=== PATIENT | female | born 1995 | race Caucasian/White ===

== ENCOUNTER 2020-12-17 16:51 | Emergency (ER) | payer MEDICAID ==
[~2020-12-17] VITALS: Ht 172.7 cm; Wt 90.9 kg
[~2020-12-17 16:51] MED LIST: BACDS PO
[2020-12-17 17:28] LABS: BASOPHILS % (AUTO) 0.4 % (0-1); EOSINOPHILS % (AUTO) 0.4 % (0-6); HEMATOCRIT 41.1 % (35.0-45.0); HEMOGLOBIN 13.9 g/dl (12.0-16.0); LYMPHOCYTES % (AUTO) 11.3 % (21-51); MEAN CORPUSCULAR HEMOGLOBIN 29.8 PG (27.0-31.0); MEAN CORPUSCULAR HGB CONC 33.8 g/dL (33.0-36.5); MEAN PLATELET VOLUME 6.7 FL (7.4-10.4); MONOCYTES # (AUTO) 0.6 X10'3 (0-0.9); MONOCYTES % (AUTO) 6.2 % (2-12); NEUTROPHILS # (AUTO) 7.5 X10'3 (1.8-7.7); NEUTROPHILS % (AUTO) 81.7 % (42-75); PLATELET COUNT 251 X10'3 (140-440); RED BLOOD COUNT 4.66 X10'6 (4.20-5.60); RED CELL DISTRIBUTION WIDTH 12.7 % (11.5-14.5); WHITE BLOOD COUNT 9.2 X10'3 (4.5-11.0)
[2020-12-17 17:55] LABS: ALANINE AMINOTRANSFERASE 22 U/L (12-78); ALBUMIN 3.8 G/DL (3.4-5.0); ALKALINE PHOSPHATASE 78 IU/L (46-116); ANION GAP 7 (8-16); ASPARTATE AMINO TRANSFERASE 20 U/L (10-37); BILIRUBIN,TOTAL 0.4 MG/DL (0.1-1.0); BLOOD UREA NITROGEN 9 MG/DL (7-18); BUN/CREATININE RATIO 8.7 (6.6-38.0); CALCIUM 8.9 MG/DL (8.5-10.1); CHLORIDE 103 MMOL/L (99-107); CREATININE 1.03 MG/DL (0.40-0.90); GLUCOSE 94 MG/DL (70-104); LIPASE < 50 U/L (73-393); POTASSIUM 3.8 MMOL/L (3.5-5.1); SODIUM 138 MMOL/L (135-145); TOTAL CARBON DIOXIDE 28.4 MMOL/L (24-32); TOTAL PROTEIN 7.5 G/DL (6.4-8.2); eGFR 65 ML/MIN
[2020-12-17 19:43] LABS: URINE HCG NEGATIVE (NEG)
[2020-12-17 20:07] LABS: UA COLLECTION TYPE CLN CATCH MIDSTREAM
[2020-12-17 20:08] LABS: CLARITY,URINE CLEAR (Clear); COLOR,URINE STRAW (Yellow)
[2020-12-17 20:09] LABS: GLUCOSE, URINE NEGATIVE (Neg); KETONES,URINE NEGATIVE (Neg); NITRITES, URINE NEGATIVE (Neg); OCCULT BLOOD,URINE TRACE-LYSED (Neg); PROTEIN,URINE NEGATIVE (Neg); UROBILINOGEN,URINE 0.2 E.U/dL (0.2-1.0)
[2020-12-17 20:10] LABS: BACTERIA,URINE FEW /HPF (Neg); LEUKOCYTE ESTERASE ,URINE TRACE (Neg); RBC,URINE 0-2 /HPF (0-2); SQUAMOUS EPITHELIAL CELL,UR FEW /LPF (FEW); WBC,URINE 0-4 /HPF (0-4)
[2020-12-17] MEDS ORDERED: LORazepam 1 MG tablet PO ONE (20:25)
--- NOTE | 2020-12-17 20:40 | NUR ---
pt d/c by provider before turn out
[2020-12-17 20:50] VITALS: BP 134/71
== END 2020-12-17 20:51 | disposition home or self-care (01) ==
LOC: ER 16:52
DX: R20.2 Paresthesia of skin (principal); R55 Syncope and collapse; Z79.899 Other long term (current) drug therapy; Z88.2 Allergy status to sulfonamides
CPT/HCPCS: 36415; 80053; 81001; 81025; 83690; 83735; 85025; 87077; 87088; 87186; 99283

== ENCOUNTER 2021-06-12 11:57 | Emergency (ER) | payer MEDICAID ==
[~2021-06-12] VITALS: Ht 170.2 cm; Wt 90.9 kg
[2021-06-12] MEDS ORDERED: proMETHazine 25mg tablet PO ONE (14:50)
[2021-06-12] MEDS ORDERED: acetaminophen 325mg tablet PO ONE (14:50)
[2021-06-12 15:06] LABS: BASOPHILS % (AUTO) 0.4 % (0-1); EOSINOPHILS % (AUTO) 0.6 % (0-6); HEMATOCRIT 40.2 % (35.0-45.0); HEMOGLOBIN 13.6 g/dl (12.0-16.0); LYMPHOCYTES % (AUTO) 12.6 % (21-51); MEAN CORPUSCULAR HEMOGLOBIN 29.6 PG (27.0-31.0); MEAN CORPUSCULAR HGB CONC 33.7 g/dL (33.0-36.5); MEAN CORPUSCULAR VOLUME 87.8 FL (78-98); MEAN PLATELET VOLUME 7.1 FL (7.4-10.4); MONOCYTES # (AUTO) 0.5 X10'3 (0-0.9); MONOCYTES % (AUTO) 6.5 % (2-12); NEUTROPHILS # (AUTO) 6.5 X10'3 (1.8-7.7); NEUTROPHILS % (AUTO) 79.9 % (42-75); PLATELET COUNT 228 X10'3 (140-440); RED BLOOD COUNT 4.58 X10'6 (4.20-5.60); RED CELL DISTRIBUTION WIDTH 13.3 % (11.5-14.5); WHITE BLOOD COUNT 8.1 X10'3 (4.5-11.0)
[2021-06-12 15:17] LABS: ALANINE AMINOTRANSFERASE 20 U/L (12-78); ALBUMIN 3.4 G/DL (3.4-5.0); ALKALINE PHOSPHATASE 67 IU/L (46-116); ANION GAP 8 (8-16); ASPARTATE AMINO TRANSFERASE 18 U/L (10-37); BILIRUBIN,TOTAL 0.5 MG/DL (0.1-1.0); BLOOD UREA NITROGEN 11 MG/DL (7-18); BUN/CREATININE RATIO 13.3 (6.6-38.0); CALCIUM 8.9 MG/DL (8.5-10.1); CHLORIDE 104 MMOL/L (99-107); CREATININE 0.83 MG/DL (0.40-0.90); GLUCOSE 87 MG/DL (70-104); POTASSIUM 3.8 MMOL/L (3.5-5.1); SODIUM 139 MMOL/L (135-145); TOTAL CARBON DIOXIDE 27.3 MMOL/L (24-32); TOTAL PROTEIN 6.9 G/DL (6.4-8.2); eGFR 83 ML/MIN
[2021-06-12 15:25] LABS: BETA HCG,QUANTITATIVE 93 mIU/ml
[2021-06-12 15:40] LABS: CLARITY,URINE SLIGHTLY CLOUDY (Clear); COLOR,URINE YELLOW (Yellow); GLUCOSE, URINE NEGATIVE (Neg); KETONES,URINE NEGATIVE (Neg); LEUKOCYTE ESTERASE ,URINE NEGATIVE (Neg); NITRITES, URINE POSITIVE (Neg); OCCULT BLOOD,URINE MODERATE (Neg); PROTEIN,URINE NEGATIVE (Neg); UROBILINOGEN,URINE 0.2 E.U/dL (0.2-1.0)
[2021-06-12 15:44] LABS: UA COLLECTION TYPE CLN CATCH MIDSTREAM
[2021-06-12 15:50] LABS: URINE HCG POSITIVE (NEG)
[2021-06-12 15:51] LABS: BACTERIA,URINE 3+ /HPF (Neg); RBC,URINE 0-2 /HPF (0-2); SQUAMOUS EPITHELIAL CELL,UR MODERATE /LPF (FEW); WBC,URINE 0-4 /HPF (0-4)
[2021-06-12 16:33] VITALS: BP 132/88
== END 2021-06-12 16:57 | disposition home or self-care (01) ==
LOC: ER 11:57
DX: O20.0 Threatened abortion (principal); N93.8 Other specified abnormal uterine and vaginal bleeding; R11.0 Nausea; Z3A.14 14 weeks gestation of pregnancy; Z79.2 Long term (current) use of antibiotics
CPT/HCPCS: 36415; 76817; 80053; 81001; 81025; 84702; 85025; 86885; 86900; 86901; 87088; 87186; 99284; Q0169; 87077

== ENCOUNTER 2021-06-26 22:48 | Emergency (ER) | payer MEDICAID ==
[~2021-06-26] VITALS: Ht 170.2 cm; Wt 90.9 kg
[2021-06-26 23:04] VITALS: BP 143/75
[2021-06-26] MEDS ORDERED: amoxicillin 250mg capsule PO ONE (23:50)
[2021-06-26] MEDS ORDERED: acetaminophen 325mg tablet PO ONE (23:50)
[2021-06-26] MEDS ORDERED: dexamethasone sod phosphate 10mg/ml inj PO STA (23:50)
[2021-06-27] MEDS ORDERED: AMOX-100 PO (00:17)
[2021-06-27 00:20] LABS: CLARITY,URINE CLEAR (Clear); COLOR,URINE YELLOW (Yellow); GLUCOSE, URINE NEGATIVE (Neg); KETONES,URINE NEGATIVE (Neg); LEUKOCYTE ESTERASE ,URINE TRACE (Neg); NITRITES, URINE NEGATIVE (Neg); OCCULT BLOOD,URINE SMALL (Neg); PROTEIN,URINE NEGATIVE (Neg); UROBILINOGEN,URINE 0.2 E.U/dL (0.2-1.0)
[2021-06-27 00:35] LABS: UA COLLECTION TYPE CLN CATCH MIDSTREAM
[2021-06-27 00:36] LABS: BACTERIA,URINE FEW /HPF (Neg); RBC,URINE 0-2 /HPF (0-2); SQUAMOUS EPITHELIAL CELL,UR FEW /LPF (FEW); WBC,URINE 0-4 /HPF (0-4)
== END 2021-06-27 00:46 | disposition home or self-care (01) ==
LOC: ER 22:48
DX: J03.80 Acute tonsillitis due to other specified organisms (principal); Z79.899 Other long term (current) drug therapy
CPT/HCPCS: 81001; 99284; J1100

== ENCOUNTER 2021-09-15 17:17 | Emergency (ER) | payer MEDICAID, OTHER ==
[~2021-09-15] VITALS: Ht 170.2 cm; Wt 90.9 kg
[2021-09-15 18:02] VITALS: BP 112/68
[2021-09-15] MEDS ORDERED: dexamethasone sod phosphate 10mg/ml inj PO STA (19:24)
[2021-09-15] MEDS ORDERED: CefTRIAXone 500MG IM Kit w/LIDOcaine IM ONE ×2 (19:25→19:50)
[2021-09-15] MEDS ORDERED: NAPR-56 PO (19:29)
[2021-09-15] MEDS ORDERED: CEPH250T PO (19:29)
[2021-09-15] MEDS ORDERED: LIDO20SO16 PO (19:29)
== END 2021-09-15 19:52 | disposition home or self-care (01) ==
LOC: ER 17:18
DX: J02.0 Streptococcal pharyngitis (principal); Z20.822 Contact with and (suspected) exposure to COVID-19; H92.03 Otalgia, bilateral; Z79.2 Long term (current) use of antibiotics; Z79.899 Other long term (current) drug therapy
CPT/HCPCS: 87635; 87880; 96372; 99283; C9803; J0696; J1100

== ENCOUNTER 2021-11-29 09:32 | Emergency (ER) | payer SELFPAY ==
[~2021-11-29] VITALS: Ht 170.2 cm; Wt 90.9 kg
[~2021-11-29 09:32] MED LIST changes: +LIDO20SO16 PO
[2021-11-29 09:50] VITALS: BP 130/49
[2021-11-29] MEDS ORDERED: DOXY100C43 PO (10:17)
== END 2021-11-29 10:33 | disposition home or self-care (01) ==
LOC: ER 09:32
DX: L02.91 Cutaneous abscess, unspecified (principal)
CPT/HCPCS: 99283